=== PATIENT | female | born 1980 | race Caucasian/White ===

== ENCOUNTER 2019-11-29 11:52 | Outpatient (REF) | payer OTHER, SELFPAY ==
[2019-11-29 12:39] LABS: COVID-19 Test Negative (Negative)
== END 2019-11-29 11:53 | disposition home or self-care (01) ==
LOC: HO.LAB 11:52
PROVIDERS: Visit Provider Internal Medicine
DX: Z20.828 Contact with and (suspected) exposure to other viral communicable diseases (principal)
CPT/HCPCS: 87635

== ENCOUNTER 2019-12-03 09:02 | Outpatient (REF) | payer OTHER, SELFPAY ==
[2019-12-03 09:30] LABS: COVID-19 Test Negative (Negative)
== END 2019-12-03 09:03 | disposition home or self-care (01) ==
LOC: HO.LAB 09:02
PROVIDERS: PCP Internal Medicine; Visit Provider Internal Medicine
DX: Z20.828 Contact with and (suspected) exposure to other viral communicable diseases (principal)
CPT/HCPCS: 87635

== ENCOUNTER 2020-02-14 14:35 | Emergency (ER) | payer OTHER, SELFPAY ==
--- NOTE | 2020-02-14 16:18 | CT_ITS ---
EXAMINATION: CT ABDOMEN AND PELVIS WITH CONTRAST CLINICAL INFORMATION: Increasing lower abdominal pain with history of endometriosis. COMPARISON: None TECHNIQUE: Multidetector volumetric images were obtained from the superior aspect of the liver through the pubic symphysis following administration 85 mL of Omnipaque 350 intravenous contrast. Sagittal and coronal reformatted images were obtained on the technologist's workstation. Oral contrast: No This CT examination was performed using dose optimization techniques as appropriate, variously including the following: *Automated exposure control *Adjustment of mA and/or kV according to patient size (this includes techniques or standardized protocols for targeted exams where dose is matched to indication/reason for exam; i.e. extremities or head) *Use of iterative reconstruction technique DLP: 659 mGy-cm FINDINGS: LUNG BASES: The visualized lung bases are unremarkable. LIVER, GALLBLADDER, AND BILIARY TREE: The liver is normal in size, shape, and attenuation. No focal hepatic lesion or biliary ductal dilatation is present. The gallbladder is unremarkable with no evidence of radiopaque gallstones, gallbladder wall thickening, or obvious pericholecystic inflammatory changes. PANCREAS: Unremarkable. SPLEEN: Unremarkable. ADRENAL GLANDS: Unremarkable. KIDNEYS AND URETERS: The kidneys are normal in size, shape, and attenuation. No hydronephrosis, hydroureter, or calculi seen. No perinephric stranding. BLADDER: Unremarkable. GASTROINTESTINAL TRACT: The small and large bowel are unremarkable. The appendix is unremarkable. ABDOMINAL WALL: No significant hernia is appreciated. LYMPH NODES: Normal. VASCULAR: Unremarkable. PELVIC VISCERA: Unremarkable. OSSEOUS STRUCTURES: Unremarkable. CT/CT abdomen pelvis w con IMPRESSION: No significant abnormality.
--- NOTE | 2020-02-14 16:24 | ED_ITS ---
HPI - Abdominal Pain General Chief Complaint: Abdominal Pain Stated Complaint: low abd pain Time Seen by Provider: 02/14/20 16:18 Source: patient Mode of arrival: ambulatory Limitations: no limitations History of Present Illness HPI narrative: pt with History of endometriosis usually gets monthly slight pain before menses last menstrual cycle was 3 weeks ago started noticing pain in her lower abdomen for last 4 days which is getting worse now especially on ambulation radiating to the back patient feels his pain is different than usual pain when she get endometriosis. No fever no chills feels nauseated bowel m ovements are normal appetite is normal no urinary complaints MD elicited complaint: abdominal pain Onset (ago): day(s) (4) Pain Consistency: constant Location: RLQ and LLQ Severity: moderate Pain scale (0-10): 6 Quality: aching Radiation: LLQ and RLQ Migration to: no migration Relieving factors: movement Associated symptoms: nausea Related Data Previous Rx's Medication Instructions Recorded ibuprofen 600 mg PO Q6H PRN #20 tab 02/14/20 Allergies Allergy/AdvReac Type Severity Reaction Status Date / Time No Known Allergies [NKA] Allergy Unknown U Unverified 10/25/19 17:05 Review of Systems Review of Systems Constitutional : No Weight loss, No Fever, No Chills ENT/Mouth : No sore throat, No Rhinorrhea Eyes: No Eye Pain, No Swelling Cardiovascular : No Chest Pain, no palpitations Respiratory : No Cough, No Sputum, no shortness of breath Gastrointestinal : ++ Nausea, No Vomiting, No Diarrhea, ++ abdominal Pain, no black stools Genitourinary : No Dysuria, No Urinary Frequency Musculoskeletal : No joint pain, No Myalgias, No Joint Swelling Skin : No Skin Lesions, No rash Neuro : No Weakness, No Numbness, No Dizziness, No Headache Psych : No Anxiety/Panic, No Depression Heme/Lymph: No Bruising, No Lymphadenopathy Endocrine : No Polyuria, No Polydipsia All other systems reviewed and are negative Physical Exam Vital Signs: Vital Signs: Last Vital Signs Temp 98.4 F 02/14/20 17:24 Pulse 80 02/14/20 17:24 Resp 16 02/14/20 17:24 BP 130/69 02/14/20 17:24 Pulse Ox 100 02/14/20 17:24 Body Mass Index 32.5 Appearance: Alert. Oriented X3. in mild distress. Eyes: Pupils equal, round and reactive to light. ENT: Pharynx normal. Neck: Normal inspection. Neck supple. CVS: Normal heart rate and rhythm. Pulses normal. Respiratory: No respiratory distress. Breath sounds normal. Abdomen: Soft moderate tenderness right lower quadrant suprapubic and left lower quadrant throat without guarding or rebound tenderness, . Bowel sounds are present, no mass palpable, no CVA tenderness Skin: Skin warm and dry. Normal skin color. Normal skin turgor. Extremities: No lower extremity edema. Neuro: Oriented X 3. No motor deficit. No sensory deficit. MDM - Abdominal Pain MDM Narrative Medical decision making narrative: Lower abdominal pain CT scan negative white counts normal and ultrasound also did not show any ovarian cyst or any masses patient feeling much better after Toradol patient pain likely from endometriosis will discharge patient home on ibuprofen Differential Diagnosis Differential diagnosis: Likely abdominal pain, calculus of kidney, diverticulitis, endometriosis and ovarian cyst Lab Data Result diagrams: 02/14/20 16:32 02/14/20 16:32 Labs: Lab Results 02/14/20 02/14/20 Range/Units 16:32 16:32 WBC 8.3 (4.8-10.8) X10*3/uL RBC 3.93 L (4.20-5.50) X10*6/uL Hgb 11.8 L (12.0-16.0) g/dl Hct 36.2 L (37-47) % MCV 92.1 (80-98) fL MCH 30.0 (27.0-33.0) pg MCHC 32.6 (31.0-35.0) g/dl RDW 12.0 (11.0-16.0) % Plt Count 236 (160-400) X10*3/uL MPV 10.4 (9.4-12.3) fL Immature Gran % (Auto) 0.5 H (0.0-0.4) % Neut % (Auto) 66.0 (45-73) % Lymph % (Auto) 24.7 (20-40) % Cochran % (Auto) 6.9 (2-11) % Eos % (Auto) 1.4 (0-4) % Baso % (Auto) 0.5 (0-2) % Lymph # (Auto) 2.1 (1.2-4.9) X10*3/uL Cochran # (Auto) 0.6 (0.1-1.2) X10*3/uL Eos # (Auto) 0.1 (0.0-0.4) X10*3/uL Baso # (Auto) 0.0 (0.0-0.2) X10*3/uL Abs Immat Gran (auto) 0.04 H (0.00-0.03) X10*3/uL Absolute Neuts (auto) 5.5 (2.0-8.3) X10*3/uL Absolute Nucleated RBC 0.000 (0.0-0.012) X10*3/uL Nucleated RBC % (auto) 0.0 (0.0-0.2) /100WBC Sodium 138 (135-145) mmol/L Potassium 4.5 (3.3-5.1) mmol/l Chloride 105 (96-108) mmol/L Carbon Dioxide 27 (22-29) mmol/L Anion Gap 11 L (12-20) BUN 17 H (9-16) mg/dL Creatinine 0.75 (0.5-1.4) mg/dL Estim Creat Clear Calc TNP Estimated GFR > 60 Random Glucose 97 (60-115) mg/dL Calcium 8.3 L (8.4-10.2) mg/dL Discharge Plan Discharge Clinical Impression: Endometriosis Patient Disposition: Home, Self-Care Instructions: Endometriosis (ED) Additional Instructions: Drink plenty of fluids take pain medication as advised follow-up with your OB Prescriptions: New ibuprofen 600 mg tablet 600 mg PO Q6H PRN (Reason: pain) Qty: 20 RF: 0 Stand Alone Forms: Work/School Release Interventions: ED Discharge Assessment Last Done: 02/14/20 19:24 Discharge Date/Time: 02/14/20 19:24 [facility] Social History Social History Alcohol intake: never Smoked in Last 30 Days: No Use of substances other than those prescribed or required for medical reasons: No Advance Directives: No Advance Directives Information Provided: Yes
[2020-02-14 16:36] LABS: MANUAL DIFF FLAG NO
[2020-02-14 16:40] LABS: Basophils Percent Auto 0.5 % (0-2); Eosinophils Absolute Auto 0.1 X10*3/uL (0.0-0.4); Eosinophils Percent Auto 1.4 % (0-4); Hematocrit 36.2 % (37-47); Hemoglobin 11.8 g/dl (12.0-16.0); Imm Gran Abs Auto 0.04 X10*3/uL (0.00-0.03); Imm Gran Pct Auto 0.5 % (0.0-0.4); Lymphocytes Absolute Auto 2.1 X10*3/uL (1.2-4.9); Lymphocytes Percent Auto 24.7 % (20-40); Mean Corpuscular HGB Conc 32.6 g/dl (31.0-35.0); Mean Corpuscular Volume 92.1 fL (80-98); Mean Platelet Volume 10.4 fL (9.4-12.3); Monocytes Absolute Auto 0.6 X10*3/uL (0.1-1.2); Monocytes Percent Auto 6.9 % (2-11); Neutrophils Absolute Auto 5.5 X10*3/uL (2.0-8.3); Platelet Count 236 X10*3/uL (160-400); Red Blood Count 3.93 X10*6/uL (4.20-5.50); White Blood Count 8.3 X10*3/uL (4.8-10.8)
[2020-02-14 17:01] LABS: Anion Gap 11 (12-20); Blood Urea Nitrogen 17 mg/dL (9-16); Calcium 8.3 mg/dL (8.4-10.2); Carbon Dioxide 27 mmol/L (22-29); Chloride 105 mmol/L (96-108); Estimated Glomerular Filt Rate > 60; Glucose Random 97 mg/dL (60-115); Potassium 4.5 mmol/l (3.3-5.1); Sodium 138 mmol/L (135-145)
[2020-02-14 17:24] VITALS: BP 130/69; PULSE 80; RESP 16; TEMP 36.9; O2SAT 100; BMI 32.5
[2020-02-14] MEDS: iohexoL 350 MG/ML 100 ML INFUS..BTL IV (17:48)
--- NOTE | 2020-02-14 17:53 | US_ITS ---
EXAMINATION: US PELVIS CLINICAL INFORMATION: Pelvic pain with history of endometriosis COMPARISON: CT abdomen pelvis earlier today TECHNIQUE: Ultrasound of the pelvis is performed using both transabdominal and transvaginal transducers along with Doppler. Transvaginal imaging is performed due to inadequate visualization transabdominally. FINDINGS: Uterus: The uterus is anteverted and measures 3.4 x 2.3 x 2.8 cm. The double wall endometrial thickness is 10 mm. The uterus is smooth in contour and has normal myometrial echogenicity. No visible fibroid. Adnexa: Both ovaries are visualized. There is normal color flow to the adnexa. There is no ovarian torsion. There is no pelvic ascites or fluid collection. Right ovary measures 3.4 x 2.3 x 2.8 cm for a volume of 11.5 mL. Left ovary measures 2.0 x 3.0 x 1.3 cm for a volume of 4.1 mL. US/US pelvic complete IMPRESSION: Normal exam
[2020-02-14] MEDS: 0.9 % Sodium Chloride 1,000 ML 999 ML IVCONT (18:00)
--- NOTE | 2020-02-14 18:02 | PC.NURSE ---
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
--- NOTE | 2020-02-14 18:27 | PC.NURSE ---
patient to ultrasound
--- NOTE | 2020-02-14 18:41 | PC.NURSE ---
pt returned from ultrasound
[2020-02-14] MEDS: Ketorolac Tromethamine 30 MG/ML VIAL IVPUSH (18:58)
== END 2020-02-14 19:24 | disposition home or self-care (01) ==
PROVIDERS: Emergency Provider Internal Medicine; PCP Internal Medicine
DX: N80.9 Endometriosis, unspecified (principal)
CPT/HCPCS: 36415; 74177; 76856; 80048; 85025; 96361; 96374; 99284; J1885; Q9967

== ENCOUNTER 2024-09-14 18:23 | Outpatient (REF) | payer OTHER, SELFPAY ==
--- NOTE | ~2024-09-14 | MR_ITS ---
EXAMINATION: MR CERVICAL SPINE WITHOUT CONTRAST CLINICAL INFORMATION: Cervical radiculopathy. COMPARISON: None available. TECHNIQUE: MRI of the cervical spine was obtained using routine sequences without contrast. FINDINGS: Craniocervical junction is intact. Normal position of the cerebellar tonsils. Bone marrow inhomogeneity. Modic type II endplate changes at C5-6. Multilevel marginal osteophyte formation and disc desiccation from C3 to C7. Grade 1 retrolisthesis C3-4. Grade 1 anterolisthesis C4-5. Reverse curvature apex at C5-6. The cervical spinal cord signal is normal. C2-3: Central disc osteophyte compresses formation. No cord compression. No neuroforamina stenosis. C3-4: Left-sided disc osteophyte compresses formation resulting in ventral spinal cord deformity. No cord signal abnormality. Left-sided neuroforamina and stenosis on a degenerative basis. C4-5: Broad-based disc osteophyte compresses formation. No cord compression. No neuroforamina stenosis. C5-6: Left-sided disc osteophyte complex formation resulting in ventral spinal cord deformity. No cord signal abnormality. Left neuroforamina and stenosis on a degenerative basis. C6-7: Right subarticular and foraminal broad-based herniated disc resulting in flattening deformity of spinal cord without cord signal abnormality and right neuroforamina stenosis likely compressing the exiting nerve roots. Bilateral perineural cysts. C7-T1: No herniated disc. No neuroforamina stenosis. No prevertebral compartment hematoma, mass or fluid collection. Flow-void signal within the main vessels is normal. Codominant vertebral arteries. MR/MR cervical spine wo con IMPRESSION: Multilevel cervical spondylosis C3 C7 pronounced at C3-4 and C5-6 levels resulting in left neuroforamina stenosis and central spinal canal stenosis without cord edema and or myelopathy. Right subarticular and foraminal broad-based herniated disc at C6-7 resulting in right neuroforamina stenosis and cord deformity without cord edema and or myelopathy. Grade 1 retrolisthesis C3-4 on a degenerative basis. Cervical instability cannot be excluded. Electronically signed by: Philipp Lanier MD 09/16/2024 04:49 PM EDT
== END 2024-09-14 18:24 | disposition home or self-care (01) ==
LOC: HO.MRI 18:23
PROVIDERS: Visit Provider Physician Assistant
DX: M54.12 Radiculopathy, cervical region (principal); M54.2 Cervicalgia
CPT/HCPCS: 72141

== ENCOUNTER → 2024-09-14 18:33 | Outpatient (BNV) | payer OTHER, SELFPAY | PROVIDERS: Visit Provider Radiology Diagnostic Radiology | DX: M50.122 Cervical disc disorder at C5-C6 level with radiculopathy (principal) | CPT/HCPCS: 72141 ==

== ENCOUNTER 2025-01-21 12:49 | Outpatient (AMB) | payer OTHER, SELFPAY ==
--- OUTSIDE RECORDS SUMMARY | 2024-03-12 08:00 | XMS_ITS ---
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 S he has been in state of good health since her last exam. She has the following concerns: S he has received the [employer] Covid-19 vaccine and Moderna booster. R elationship [...] sometimes a cardio-dance. * ROS: A nnual Senior Vice President And Chief Information Officer Exam ROS: Bowel habit changes d enies. [...] Denies A nxiety. * Medical History: * Senior Vice President And Chief Information Officer History: G ravida/ Para 0 /0. S [...] no acute distress, well developed, well nourished, lead project engineer present in room. HEAD: n ormocephalic, atraumatic. [...] * Follow Up: 1 Year (Reason: Yearly Senior Vice President And Chief Information Officer Exam) * Images: Billing Information: * Visit Code: [id number] Preventive Care Est Pt. Age 40-64. 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 She has been in state of [...] x 3-4 days/week by walking videos on [employer], sometimes with weights, sometimes a cardio-dance. Examination Category Sub-Category Detail Notes Category Not es General Examination GENERAL APPEARANCE: in no ac bisi distress, well developed, well nourished, lead project engineer present in room HEAD: normocephalic, atrau matic [...]
--- NOTE | 2025-01-21 12:52 | MHC.OFFVIS ---
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 Her symptoms began five months ago when she woke up with pain in her right scapula, which felt like she had slept wrong. This pain progressed to involve her neck with radiation down her right arm to the elbow. She has pursued multiple treatments, including physical therapy with [facility] in December, massage, and dry needling, which offered temporary relief. She received a right C7 transforaminal epidural steroid injection on October 20, 2024 by , which provided temporary pain relief. The patient had a neurosurgical evaluation with Dr. De Guzman's office in late October, where surgery was not recommended due to concern for the adjacent disc level being in worse condition, which would necessitate a more extensive fusion. The Neurosurgeon instead suggested another therapeutic injection. An MRI of the cervical spine from September showed multilevel cervical spondylosis from C3-C7. Specific findings included a right subarticular and foraminal herniated disc at C6-C7 causing right neuroforaminal stenosis, left neuroforaminal stenosis at C3-4 and C5-6, and a grade 1 spondylolisthesis at C3-C4. Her medication history includes taking Aleve and cyclobenzaprine for pain. She previously tried gabapentin but discontinued it due to side effects of feeling sick. She has a history of taking Fioricet for headaches. Pain Description - Onset: Approximately 5 months ago. - Location: Primary pain in the neck. - Radiation: Pain radiates down the right arm to the elbow and inside the right scapula. - Character: The pain is described as a constant, aching sensation, with a pulling feeling when looking down. - Severity: The patient rates her current pain as 2/10, noting that it worsens by the end of the day. - Exacerbating Factors: Pain is worsened by any movement, looking down, sneezing, coughing, and heavy lifting. - Relieving Factors: Massage, heat, Flexeril and Aleve help to improve her pain. - ADL Interference: The patient is able to work, but the pain intensifies at the end of the day. Pain Management - Affect: The patient reports being so in pain. - Analgesia: Current pain level is 2/10, worsens by the end of the day with ADLs and work. - She uses Aleve as needed, which provides some relief. - She has had a prior right C7 transforaminal epidural steroid injection with moderate but temporary benefit. - She generally prefers not to take medication. - Adverse Effects: She experienced feeling sick after taking gabapentin 100 mg and discontinued it. - Activities of Daily Living: She is able to continue working, though pain worsens by the end of the day. - She is able to sleep without difficulty. - Aberrant Drug-Related Behaviors: None noted. Oswestry Neck Pain Disability Score=12 [facility] Medical History (Updated 01/21/25 @ 13:28 by ABRAHAM Krueger) Iron deficiency anemia Migraines Cervical radiculopathy Adenomyosis Anxiety Social History Alcohol intake: never Patient Tobacco Use Status: Former Tobacco user Tobacco use type: Cigarette Review of Systems Narrative - Neurological: Reports neck pain with radiation to the right arm and elbow, a pulling sensation with neck flexion, and pain at the right top of the shoulder with coughing or sneezing. - Denies headaches, dizziness, visual changes, tingling in the fingers, neck instability, or gait imbalance. - Musculoskeletal: Reports constant, aching pain in the neck that worsens with movement. Const All systems reviewed & are unremarkable except as noted in HPI and below Physical Exam General: Appears afebrile. Alert and oriented. Mood and affect appropriate. Follows and participates in conversation appropriately. Respiratory effort is unlabored. No cough. Able to transition from sit to stand unassisted. Ambulates with bilaterally normal heel strike and toe off. Neck Other: Full ROM of cervical spine, increased pain with flexion and left lateral rotation and bending. Spurling compression test equivocal. Elvey's tension test positive on the right, with radiation of pain from neck to elbow, denies numbness or tinging in hand or fingers. Lhermitte's test was negative. DTR intact, +2 and symmetrical. Patient demonstrated 5/5 motor strength of bilateral upper extremities. 2 + radial pulses. Significant tightness throughout lower and upper trapezius muscles. No paravertebral tenderness over facet joints bilaterally. Neck: Yes normal visual inspection, Yes full ROM, Yes no lymphadenopathy, Yes supple, No anterior neck swelling, Yes no JVD, No prominent supraclavicular fat pad and Yes prominent dorsocervical fat pad Back/Spine/Pelvis Cervical Spine: No collar present, No Lhermitte's sign positive, loss of normal cervical lordosis, cervical muscular tenderness, pain with cervical ROM, No Cervical spine scars present, Cervical spine tenderness (mild mid to lower cervical) and No step off deformity Thoracic/Lumbar Spine: thoracic and lumbar spine normal to inspection, No Thoracic/lumbar spine scar(s), thoraco-lumbar ROM normal, Lasegue's sign negative, straight leg raise negative bilaterally, No thoracic spinal tenderness and No lumbar spinal tenderness Results Reviewed Results Reviewed: MR CERVICAL SPINE WITHOUT CONTRAST 09/14/24 CLINICAL INFORMATION: Cervical radiculopathy. COMPARISON: None available. TECHNIQUE: MRI of the cervical spine was obtained using routine sequences without contrast. FINDINGS: Craniocervical junction is intact. Normal position of the cerebellar tonsils. Bone marrow inhomogeneity. Modic type II endplate changes at C5-6. Multilevel marginal osteophyte formation and disc desiccation from C3 to C7. Grade 1 retrolisthesis C3-4. Grade 1 anterolisthesis C4-5. Reverse curvature apex at C5-6. The cervical spinal cord signal is normal. C2-3: Central disc osteophyte compresses formation. No cord compression. No neuroforamina stenosis. C3-4: Left-sided disc osteophyte compresses formation resulting in ventral spinal cord deformity. No cord signal abnormality. Left-sided neuroforamina and stenosis on a degenerative basis. C4-5: Broad-based disc osteophyte compresses formation. No cord compression. No neuroforamina stenosis. C5-6: Left-sided disc osteophyte complex formation resulting in ventral spinal cord deformity. No cord signal abnormality. Left neuroforamina and stenosis on a degenerative basis. C6-7: Right subarticular and foraminal broad-based herniated disc resulting in flattening deformity of spinal cord without cord signal abnormality and right neuroforamina stenosis likely compressing the exiting nerve roots. Bilateral perineural cysts. C7-T1: No herniated disc. No neuroforamina stenosis. No prevertebral compartment hematoma, mass or fluid collection. Flow-void signal within the main vessels is normal. Codominant vertebral arteries. IMPRESSION: Multilevel cervical spondylosis C3 C7 pronounced at C3-4 and C5-6 levels resulting in left neuroforamina stenosis and central spinal canal stenosis without cord edema and or myelopathy. Right subarticular and foraminal broad-based herniated disc at C6-7 resulting in right neuroforamina stenosis and cord deformity without cord edema and or myelopathy. Grade 1 retrolisthesis C3-4 on a degenerative basis. Cervical instability cannot be excluded. Assessment & Plan Assessment & Plan (1) Cervical spondylosis: Code(s): M47.812 - Spondylosis without myelopathy or radiculopathy, cervical region Category: Medical (2) Degenerative disc disease, cervical: Code(s): M50.30 - Other cervical disc degeneration, unspecified cervical region Category: Medical (3) Spondylolisthesis, cervical region: Code(s): M43.12 - Spondylolisthesis, cervical region Category: Medical (4) Herniation of cervical intervertebral disc with radiculopathy: Code(s): M50.10 - Cervical disc disorder with radiculopathy, unspecified cervical region Category: Medical Plan The plan is to proceed with a Right parasagittal interlaminar C6-C7 FANNY with local, oral Ativan prn and fluoroscopy to address the patient's cervical radiculopathy. Expectations, risks and benefits were reviewed. Patient is aware she will be contacted to schedule this procedure. Radiofrequency ablation was discussed as a potential future treatment option for axial cervical spine pain, which could offer pain relief for 9-14 months, depending on the results of diagnostic cervical medial branch blocks. The possibility of ordering flexion and extension X-rays to further evaluate the C3-C4 spondylolisthesis was also considered. Follow-up is scheduled for one month after the injection. All questions and concerns have been answered and patient agreed with the treatment plan. Follow up for and sooner as needed. Patient was informed and verbally consented to the use of an ambient scribe for clinic note documentation during this visit. Orders: Orders XR cervical spine w flex/ext Today M43.12 - Spondylolisthesis, cervical region, M47.812 - Spondylosis without myelopathy or radiculopathy, cervical region, M48.02 - Spinal stenosis, cervical region, M50.30 - Other cervical disc degeneration, unspecified cervical region Coding Level of Care Code New Pt Level 4 (42191) Diagnoses Cervical spondylosis M47.812 Degenerative disc disease, cervical M50.30 Spondylolisthesis, cervical region M43.12 Herniation of cervical intervertebral disc with radiculopathy M50.10
[2025-01-21 12:59] VITALS: BP 139/82; PULSE 71; O2SAT 99; BMI 28.0
--- OUTSIDE RECORDS SUMMARY | 2025-01-21 18:28 | XMS_ITS | Clinical Summary ---
[facility] Address [address] [place] [phone] Phone Care Team Providers Care Site Safety Representative Name Role Phone Mary Bradley MD Primary Care Provider [phone] Allergies No known active allergies Medications butalbital-aceta minophen-caffein e 50-300-40 mg capsule Take 50 mg by mouth daily as needed for Other (headache). TAKE 1 CAPSULE BY MOUTH EVERY DAY NEEDED FOR HEADACHE 4 Active FLUoxetine (PROzac) 20 mg capsuleIndicatio ns:Anxiety disorder, unspecified Take 1 capsule (20 mg total) by mouth 1 (one) time each day. 90 capsule 5 Active norethindrone (KARTIK,ANGEL,HE ATHER,MICRONOR) 0.35 mg tablet take 1 tablet by mouth every day for 84 days 5 Active tirzepatide, weight loss, (Zepbound) 12.5 mg/0.5 mL injection Inject 0.5 mL (12.5 mg total) under the skin every 7 (seven) days. Active Active Problems Problem Noted Date Diagnosed Date Cervical radiculopathy 11/02/2024 Assessment & Plan (11/02/2024 10:30 AM EDT): I reviewed the imaging findings in detail with Ms. Denson and it appears that there is an acute right sided disc herniation at C6-7, 90% of which will resolve over time without surgery. She has seen some benefit from the C7 TFE 2 weeks ago and I recommended that she continue PT and give it a little more time. She could potentially have a repeat injection 6 weeks from the first for any residual symptoms. If that does not eliminate the issue or if she decides not to have a repeat injection and this again becomes a daily problem, we could reconsider a C6-7 ACDF with plating. There is an inherent risk of adjacent segment disease and C5-6 shows significant signs of wear and tear and is her worst appearing level. She is hoping to avoid surgery so we will continue medical management. Adenomyosis 04/13/2024 Iron deficiency anemia 04/13/2024 Migraines 04/13/2024 Anxiety 11/26/2014 Obesity (BMI 30-39.9) 12/21/2012 Encounters Date Type Department Care Team Description 12/18/2024 [facility] [place] [id number] Navya Gomez RN 12/18/2024 [facility] [address] [place], [place] [address] [id number] Tasia Kruger, 12/07/2024 [facility] [address] [facility] [place] [id number] Tasia Kruger, 11/16/2024 [facility] [place] [id number] Tasia Kruger, 11/08/2024 Results [facility] [address] [place], [place] [address] Saige Gr[place] [id number] Lucas Gonzalez MD 11/07/2024 9:30 AM EDT [facility] [place] [id number] Lucas Gonzalez MD Encounter for annual physical exam (Primary Dx); Anxiety; Migraine without aura and without status migrainosus, not intractable; Encounter for lipid screening for cardiovascular disease 11/02/2024 9:30 AM EDT Consult Neurosurgery [place] [address] [place] [address] Rajni Molina MD Cervical radiculopathy (Primary Dx) from Last 3 Months Immunizations Immunization Administration Dates Next Due Influenza trivalent, 0.5mL, preservative free (Fluarix; FluLaval; Fluzone) ages 6mo and older (Afluria) 3 years and older 11/06/2017,11/07/2014,10/08/2012 Influenza, Unspecified 10/12/2023 Moderna SARS-CoV-2 COVID-19, mRNA, LNP-S, preservative free 01/22/2021 Pfizer SARS-CoV-2 COVID-19, mRNA, LNP-S, preservative free 02/15/2020,01/25/2020 Tdap Tetanus diptheria acell ular pertussis (Boostrix; Adacel) 7yo and older 10/13/2023,12/21/2012 Surgical History Surgery Date Site/Laterality Comments TONSILLECTOMY PROCEDURE: HISTORICAL TONSILLECTOMY BUNIONECTOMY Left PROCEDURE: BUNION SURGERY, SIMPLE REMOVAL OTHER SURGICAL HISTORY 1995 Right PROCEDURE: REPAIR FINGER DEFORMITY; COMMENT: Elizabeth. Middle finger deformity Medical History Medical History Date Comments Migraines DX:Migraines Anxiety DX:Anxiety Iron deficiency anemia DX:Iron d eficiency anemia Adenomyosis DX:Adenomyosis Family History Medical History Relation Name Comments Other: Alive and healthy Brother Other: Alive and healthy Father Cataracts Mother thyroid disease Coronary artery disease Paternal Grandfather Other: CAD, dementia Paternal Grandmother Relation Name Status Comments Brother Father Mother Alive Paternal Grandfather Paternal Grandmother Social History Tobacco Use Types Packs/Day Years Used Date Smoking Tobacco: Former Cigarettes 0.2 0 02/07/1997 - 04/07/1997 Smokeless Tobacco: Never Tobacco Cessation:Counseling Given: Not Answered Alcohol Use Standard Drinks/Week Comments Not Asked 0 (1 standard drink = 0.6 oz pur e alcohol) Housing Instability Answer Date Recorde d Are you worried that in the next 2 months you may not have stable housing? No 04/15/2024 Food Access & Nutrition Answer Date Rec orded Do you have access to a vari ety of food including fruits and vegetables? No 04/15/2024 Access to Healthcare Answer Date Record ed Within the last 3 months, ho w many times did you visit the emergency department for your medical care? 0 04/15/2024 Health Literacy Answer Date Recorded How often do you need to hav e someone help you when you read instructions, pamphlets, or other written material from your doctor or pharmacy? Never 04/15/2024 Caregiver: How often do you need to have someone help you when you read instructions, pamphlets, or other written material from your doctor or pharmacy? Not on file 04/15/2024 Financial Risk Answer Date Recorded How hard is it for you to pa y for the very basics like food, housing, medical care, and air conditioning / heating? Not very hard 04/15/2024 Transportation Answer Date Recorded Has the lack of transportati on kept you from meetings, work, or from getting things needed for daily living? No Has the lack of transportati on kept you from medical appointments or from getting medications? No 04/15/2024 Social Isolation Answer Date Recorded How often do you feel lonely or isolated from th ose around you? Never 04/15/2024 Food Risk Answer Date Recorded Within the past 12 months we worried whether our food would run out before we got money to buy more. Never true 04/15/2024 Within the past 12 months th e food we bought just didn't last and we didn't have money to get more. Never true 04/15/2024 Dependent Care Answer Date Recorded Do you need help finding or paying for care for your loved ones. For example, attendant children's institution or elderly care for an older adult? No 04/15/2024 Education Answer Date Recorded Do you think completing more education or training, like finishing a GED, going to college, or learning a trade, would be helpful for you? No 04/15/2024 Employment and Income Answer Date Recor ded During the last four weeks, have you been actively looking for work? No 04/15/2024 Living Situation Answer Date Recorded What is your living situation? Unrecognized valu e 04/15/2024 Comments No Sex and Gender Information Value Date Recorded Sex Assigned at Female 08/03/2024 7:20 PM EDT Legal Sex Female 11:10 PM EST Gender Identity Female 08/03/2024 7:20 PM EDT Sexual Orientation Straight 08/03/2024 7: 20 PM EDT Last Filed Vital Signs Vital Sign Reading Time Taken Comments Blood Pressure 80/58 11/07/2024 9:12 AM EDT Pulse 69 11/07/2024 9:12 AM EDT Temperature - - Respiratory Rate 16 08/20/2024 1:07 PM EDT Oxygen Saturation 97% 08/14/2024 9:18 AM EDT Inhaled Oxygen Concentration - - Weight 74.7 kg (164 lb 11.2 oz) 11/07/2024 9:12 AM EDT Height 162.6 cm (5' 4 ) 11/07/2024 9:12 AM EDT Body Mass Index 28.27 11/07/2024 9:12 AM EDT Plan of Treatment Health Maintenance Due Date Last Done Comments Breast Cancer Screening 1980 Hepatitis B Vaccines (1 of 3 - 19+ 3-dose series) 06/29/1999 HPV Vaccines (1 - 3-dose SCDM series) 06/29/2007 HIV Screening 01/10/2022 Hepatitis C Screening 01/10/2022 Social Influencers of Health Screening 04/15/2025 04/15/2024 Cervical Cancer Screening: Pap Smear 08/23/2027 08/22/2024, 05/20/2021 Cholesterol Screening (Lipid Panel) 11/07/2029 11/07/2024, 10/13/2023, 10/13/2023 DTaP,Tdap,and Td Vaccines (3 - Td or Tdap) 10/12/2033 10/13/2023, 12/21/2012 RSV Immunization Adult Patients (1 - 1-dose 75+ series) 06/29/2055 COVID-19 Vaccine Discontinued 01/22/2021, 09/2020, 01/25/2020 Influenza Vaccine Discontinued 10/12/2023, , 11/07/2014, Additional history exists Depression Screening Completed 04/15/2024 HIB Vaccines Aged Out No longer eligi ble based on patient's age to complete this topic Hepatitis A Vaccines Aged Out No long er eligible based on patient's age to complete this topic IPV Vaccines Aged Out No longer eligi ble based on patient's age to complete this topic MMR Vaccines Aged Out No longer eligi ble based on patient's age to complete this topic Meningococcal ACWY Vaccine Aged Out N o longer eligible based on patient's age to complete this topic Meningococcal B Vaccine Aged Out No l onger eligible based on patient's age to complete this topic Pneumococcal Vaccine: Pediatrics (0 to 5 Years) and At-Risk Patients (6 to 49 Years) Aged Out No longer eligible based on patient's age to complete this topic RSV Immunization Patients Under 20 months Aged Out No longer eligible based on patient's age to complete this topic Varicella Vaccines Aged Out No longer eligible based on patient's age to complete this topic Procedures Procedure Name Priority Date/Time Associated Diagnosis Comments LIPID PANEL WITH REFLEX TO DIRECT LDL Routine 11/07/2024 9:49 AM EDT Encounter for lipid screening for cardiovascular disease COMPREHENSIVE METABOLIC PANEL Routine 11/07/2024 9:49 AM EDT Encounter for lipid screening for cardiovascular disease HM PAP SMEAR Routine 05/20/2021 from Last 3 Months or Most Recently Relevant to Health Maintenance Results * Lipid panel with reflex to direct LDL (11/07/2024 9:49 AM EDT) Cholesterol 148 0 - 200 mg/dL LAB CHEMISTRY METHOD 11/07/2024 4:36 PM EDT [facility] Triglycerides 43 0 - 150 mg/dL LAB CHEMISTRY METHOD 11/07/2024 4:36 PM EDT [facility] HDL 67 >=40 mg/dL LAB CHEMISTRY METHOD 11/07/2024 4:36 PM EDT [facility] LDL Calculated 72 0 - 100 mg/dL LAB CHEMISTRY METHOD 11/07/2024 4:36 PM EDT [facility] Comment:Estimated LDL Calcul ated using equation: Total cholesterol - HDL cholesterol - (Triglycerides/5) VLDL Cholesterol Tramaine 8.6 mg/dL LAB CHEMISTRY METHOD 11/07/2024 4:36 PM EDT [facility] Non HDL Chol. (LDL+VLDL) 81 <145 mg/dL LAB CHEMISTRY METHOD 11/07/2024 4:36 PM [facility] Chol/HDL Ratio 2.2 0.0 - 4.4 LAB CHEMISTRY METHOD 11/07/2024 4:36 PM [facility] Blood Venous blood specimen / Unknown Venipuncture / Unknown 11/07/2024 9:49 AM EDT 11/07/2024 9:49 AM EDT us Lucas Gonzalez MD LAB BLOOD ORDERABLES Final Resu lt [facility] [address] [place] [address], [place] [phone] * (ABNORMAL) Comprehensive metabolic panel (11/07/2024 9:49 AM EDT) Sodium 140 133 - 145 mmol/L LAB CHEMISTRY METHOD 11/07/2024 4:36 PM [facility] Potassium 4.5 3.5 - 5.5 mmol/L LAB CHEMISTRY METHOD 11/07/2024 4:36 PM [facility] Chloride 109 96 - 110 mmol/L LAB CHEMISTRY METHOD 11/07/2024 4:36 PM [facility] CO2 28 21 - 32 mmol/L LAB CHEMISTRY METHOD 11/07/2024 4:36 PM [facility] Anion Gap 3 3 - 11 LAB CHEMISTRY METHOD 11/07/2024 4:36 PM [facility] Glucose 74 70 - 100 mg/dL LAB CHEMISTRY METHOD 11/07/2024 4:36 PM [facility] BUN 10 5 - 25 mg/dL LAB CHEMISTRY METHOD 11/07/2024 4:36 PM [facility] Creatinine 0.61 0.50 - 1.10 mg/dL LAB CHEMISTRY METHOD 11/07/2024 4:36 PM [facility] eGFR 113 >=60 mL/min/1. 73m2 LAB CHEMISTRY METHOD 11/07/2024 4:36 PM T [facility] Comment:Calculation based on the Chronic Kidney Disease Epidemiology Collaboration (CKD-EPI) equation refit without adjustment for race. BUN/Creatinine Ratio 16.4 LAB CHEMISTRY METHOD 11/07/2024 4:36 PM [facility] Calcium 8.7 8.5 - 10.5 mg/dL LAB CHEMISTRY METHOD 11/07/2024 4:36 PM [facility] AST (SGOT) 17 10 - 42 unit/L LAB CHEMISTRY METHOD 11/07/2024 4:36 PM [facility] ALT (SGPT) 23 10 - 60 unit/L LAB CHEMISTRY METHOD 11/07/2024 4:36 PM [facility] Alkaline Phosphatase 28(L) 42 - 121 unit/L LAB CHEMISTRY METHOD 11/07/2024 4:36 PM [facility] Total Protein 6.2 6.0 - 8.0 g/dL LAB CHEMISTRY METHOD 11/07/2024 4:36 PM [facility] Albumin 3.5 3.2 - 5.0 g/dL LAB CHEMISTRY METHOD 11/07/2024 4:36 PM [facility] Total Bilirubin 0.3 0.0 - 1.4 mg/dL LAB CHEMISTRY METHOD 11/07/2024 4:36 PM [facility] Blood Venous blood specimen / Unknown Venipuncture / Unknown 11/07/2024 9:49 AM EDT 11/07/2024 9:49 AM EDT us Lucas Gonzalez MD LAB BLOOD ORDERABLES Final Resu lt [facility] [address] [place] [address], [place] [phone] * Hm Pap Smear (05/20/2021) HM Pap smear no interpreta tion,abstr acted us Historical Provider HEALTH MAINTENANCE Final Result from Last 3 Months or Most Recently Relevant to Health Maintenance Insurance [employer] Care Teams Site Safety Representative Relationship Specialty Start Date End Date Mary Bradley MD [address] [place] [phone] PCP - General Internal Medicine 12/18/24
--- OUTSIDE RECORDS SUMMARY | 2025-01-21 18:29 | XMS_ITS | Patient Health Record ---
Author Organization [facility] Address [address] [place] [address] Care Team Providers Care Swim Coach Name Role Phone JONO CHAPMAN Unavailable [phone] Allergies No Known Allergies Results Component Value Reference Range Notes [id number] IGP No Culture 30 Plus Reviewed date:04/24/2024 01:03:33 PM Interpretation: Performing Lab:[facility], [address], [address], [place], Phone - [phone], Director - [facility] Notes/Report: Clinical Information:VAG/CERV [id number] LMP / Prev Treat...YMD=[id number] Dates / Results....10/31/18 No. of containers..01 ThinPrep Vial DIAGNOSIS: NEGATIVE FOR IN TRAEPITHELIAL LESION OR MALIGNANCY. Specimen adequacy: Satisfactory for evaluation. Endocervical and/or squamous metaplastic cells (endocervical component) are present. Clinician provided ICD10: Z0 1.419 Performed by: Fabien nath, Salesperson [employer] ([facility]) . . Note: The Pap smear is a screening test designed to aid in the detection of premalignant and malignant conditions of the uterine cervix. It is not a diagnostic procedure and should not be used as the sole means of detecting cervical cancer. Both false-positive and false-negative reports do occur. . Test Methodology: This liquid based ThinPrep(R) pap test was screened with the use of an image guided system. HPV Aptima Negative Negative This nucleic acid amplification test detects fourteen high-risk HPV types (16,18,31,33,35,39,45,51,52,56,58 ,59,66,68) without differentiation. HPV Genotype Reflex Criteria not met, HPV Genotype not performed. PDF Report Reviewed date:04/24/2024 01:05:13 PM Interpretation: Performing Lab:[facility], [address], [address], [place], Phone - [phone], Director - [place] Notes/Report: Clinical Information:VAG/CERV [id number] LMP / Prev Treat...[id number]=[id number] Dates / Results....10/31/18 No. of containers..01 ThinPrep Vial Reason For Referral No Information Medications Medication SIG (Take, Route, Fr equency, Duration) Notes Start Date End Date Status Mefenamic Acid 250 MG 1 capsule with yoni d or milk Orally Initially 2 capsules, then 1 cap every 6 hours for first 3d of menses; Duration: 3 days [facility] 07/10/2013 Active Fioricet 50-300-40MG ORAL; Duration: -3 [facility] 12/25/2013 Active Multi For Her - as directed Orally Active Norethindrone 0.35 MG 1 tablet Orally On ce a day; Duration: 84 days 04/19/2024 Active FLUoxetine HCl 20 MG 1 capsule Orally On ce a day; Duration: 30 day(s) Active Zepbound 12.5 MG/0.5ML 0.5 mL Subcutaneous Active Social History Tobacco Use: Social History Observation Description Date Details (start date - stop date) Never Smoker NA - NA Tobacco Use/Smoking Question Answer Notes Are you a nonsmoker Alcohol Screen (Audit-C) Question Answer Notes Did you have a drink contain ing alcohol in the past year? Yes How often did you have a dri nk containing alcohol in the past year? Monthly or less (1 point) How many drinks did you have on a typical day when you were drinking in the past year? 1 or 2 drinks (0 point) How often did you have 6 or more drinks on one occasion in the past year? Never (0 point) Points 1 Interpretation Negative Tobacco use other than smoking: Question Answer Notes Are you an other tobacco user? 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 Heterosexual CONTRACEPTION: none , trying to conceive. Severe migraines from OCP TOBACCO EXPOSURE: No smokers in home. 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 Heterosexual CONTRACEPTION: none , trying to conceive. 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 Heterosexual CONTRACEPTION: none , trying to conceive. Severe migraines from OCP TOBACCO EXPOSURE: No smokers in home. 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 Heterosexual CONTRACEPTION: none , trying to conceive. Severe migraines from OCP TOBACCO EXPOSURE: No smokers in home. ALCOHOL: occasional alcohol TEXT MESSAGING WHILE DRIVING: no ILLICIT DRUGS: no SEATBEALT: yes MARITAL STATUS: LIVES WITH: spouse OCCUPATION: employed full-time [employer] at [employer] xNUTRITION: good diet, on WW EXERCISE: occasional aerobic activity, occasional weight lifting / resistance exercise SEXUAL ACTIVITY: monogamous relationship. Heterosexual CONTRACEPTION: none , trying to conceive. Severe migraines from OCP TOBACCO EXPOSURE: No smokers in home. 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 Heterosexual CONTRACEPTION: none , trying to conceive. Severe migraines from OCP TOBACCO EXPOSURE: No smokers in home. 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 Heterosexual CONTRACEPTION: none , trying to conceive. Severe migraines from OCP TOBACCO EXPOSURE: No smokers in home. 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 Heterosexual CONTRACEPTION: none , trying to conceive. Severe migraines from OCP TOBACCO EXPOSURE: No smokers in home. 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 Heterosexual CONTRACEPTION: none , trying to conceive. Severe migraines from OCP TOBACCO EXPOSURE: No smokers in home. 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 Heterosexual CONTRACEPTION: none , trying to conceive. Severe migraines from OCP TOBACCO EXPOSURE: No smokers in home. 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 Heterosexual CONTRACEPTION: none , trying to conceive. Severe migraines from OCP TOBACCO EXPOSURE: No smokers in home. 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 Heterosexual CONTRACEPTION: none , trying to conceive. Severe migraines from OCP TOBACCO EXPOSURE: No smokers in home. 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 Heterosexual CONTRACEPTION: none. Severe migraines from OCP TOBACCO EXPOSURE: No smokers in home. 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 Heterosexual CONTRACEPTION: none. Severe migraines from OCP TOBACCO EXPOSURE: No smokers in home. 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 Heterosexual CONTRACEPTION: none. Severe migraines from OCP TOBACCO EXPOSURE: No smokers in home. ALCOHOL: occasional alcohol TEXT MESSAGING WHILE DRIVING: no ILLICIT DRUGS: no SEATBEALT: yes Problems Problem Type SNOMED Code ICD Code Onset Dates Problem Status W/U Status Risk Notes Problem Dysmenorrhea (135133414) Dysmenorrhea, unspecified (N94.6) Active confirmed Problem Migraine without aura, not refractory (disorder) (469464254) Migraine, unspecified, not intractable, without status migrainosus (G43.909) Active confirmed Problem Atopic dermatitis (93583375) Atopic dermatitis, unspecified (L20.9) Active confirmed Problem Subacute and chronic vaginitis (N76.1) Active confirmed Problem Endometriosis of uterus (34259789) Endometriosis of uterus (N80.0) Active confirmed Problem Female infertility (9188307) Female infertility, unspecified (N97.9) Active confirmed Problem COVID-19 (492873382) COVID-19 (U07.1) Active confirmed Problem Body mass index 30.00 to 34.99 (943350073133439) Body mass index [BMI] 34.0-34.9, adult (Z68.34) Active confirmed Problem Dysmenorrhea (633918761) Dysmenorrhea (625.3) Active confirmed Diag Vital Signs Temperature 98.0 degrees Fahrenheit 04/19/2024 Blood pressure diastolic 68 mm Hg 04/19/2024 Height 63.5 in 04/19/2024 Blood pressure systolic 116 mm Hg 04/19/2024 Weight 172 lbs 04/19/2024 BMI 29.99 kg/m2 04/19/2024 Encounters Encounter Location Date Provider Diagnosis [facility] [employer] [address] [place] [id number] 04/19/2024 JONO CHAPMAN Encounter for gynecological examination (general) (routine) without abnormal findings Z01.419 ; Encounter for screening mammogram for malignant neoplasm of breast Z12.31 and Dysmenorrhea, unspecified N94.6 [facility] [employer] [address] [address] 08/05/2024 JONO CHAPMAN [facility] [facility] [employer] [address] [address] 08/07/2024 JONO CHAPMAN Assessments Encounter Date Diagnosis (ICD Code) Assessment Notes Treatment Notes Treatment Clinical Notes Section Notes 04/19/2024 Encounter for gynecological examination (general) (routine) without abnormal findings (ICD-10 - Z01.419) Discussed cervical cancer screening with either cytology alone every 3 years or high risk HPV co-testing every 5 years as per ASCCP guidelines. Advised continued annual pelvic exams. Patient encouraged to increase her level of exercise. SBE technique encouraged/taught. Patient reminded when annual mammogram is due. 04/19/2024 Encounter for screening mammogram for malignant neoplasm of breast (ICD-10 - Z12.31) 04/19/2024 Dysmenorrhea, unspecified (ICD-10 - N94.6) Discussed that Zepbound can decrease the effectiveness of hormonal contraceptives - she has never prevented , and never conceived. Was never interested in testing to see why. She accepts this lower efficacy. Plan Of Treatment Pending Test Test Name Order Date Urinalysis 10/06/2016 Ultrasound : Transvaginal 03/15/2014 ONE SWAB 11/12/2016 ANTI MULLERIAN HORMO 10/31/2018 ESTRADIOL 10/31/2018 FSH 10/31/2018 LH 10/31/2018 PROLACTIN 10/31/2018 THIN PREP,HPV,ALDAIR IF HPV+/CYT-,CT/GC(>2 9YR)(DIAG) 10/31/2018 TSH 10/31/2018 MM Digital Screening Mammogram 3D 2020 MM Digital Screening Mammogram 3D 2022 MM Digital Screening Mammogram 3D 2024 Insurance Providers Payer Name Payer Address Payer Phone Subscriber Number Group Number Insured Name Patient Relationship to Insured Coverage Start Date Coverage End Date [employer] [address] [place] [address] [id number] JEMIMA STROUD Self - patient is the insured Medical (General) History Medical History History ICD Code Dysmenorrhea, unspecified N94.6 Migraine, unspecified, not intractable, without status migrainosus Endometriosis of uterus N80.0 Atopic dermatitis, unspecified L20.9 Excessive and frequent menstruation with regular cycle N92.0 COVID-19 U07.1 Surgical History Surgery Date(Month/Year) Bunionectomy hand surgery T+A wisdom teeth extraction Lasik - both eyes 2021 Hospitalization History Reason Date(Month/Year)
== END 2025-01-21 13:21 | disposition home or self-care (01) ==
LOC: HO.PMC 12:49
PROVIDERS: PCP Internal Medicine; Visit Provider Nurse Practitioner Family
DX: M47.812 Spondylosis without myelopathy or radiculopathy, cervical region (principal); M50.30 Other cervical disc degeneration, unspecified cervical region; M43.12 Spondylolisthesis, cervical region; M50.10 Cervical disc disorder with radiculopathy, unspecified cervical region
CPT/HCPCS: 99204

== ENCOUNTER 2025-01-22 12:35 | Outpatient (REF) | payer OTHER, SELFPAY ==
--- OUTSIDE RECORDS SUMMARY | 2024-03-12 08:00 | XMS_ITS ---
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 MANAGER Physical Encounters Encounter Location Date Provider Diagnosis [facility] [address] [place] [id number] 03/12/2024 JONO CHAPMAN Encounter for gynecological examination (general) (routine) without abnormal findings Z01.419 ; Encounter for screening mammogram for malignant neoplasm of breast Z12.31 and Encounter for screening for infections with a predominantly sexual mode of transmission Z11.3 Assessments Encounter Date Diagnosis (ICD Code) Assessment Notes Treatment Notes Treatment Clinical Notes Section Notes 03/12/2024 Encounter for gynecological examination (general) (routine) without abnormal findings (ICD-10 - Z01.419) Discussed cervical cancer screening with either cytology alone every 3 years or high risk HPV co-testing every 5 years as per ASCCP guidelines. Advised continued annual pelvic exams. Patient encouraged to increase her level of exercise. SBE technique encouraged/tau ght. Patient reminded when annual mammogram is due. 03/12/2024 Encounter for screening mammogram for malignant neoplasm of breast (ICD-10 - Z12.31) 03/12/2024 Encounter for screening for infections with a predominantly sexual mode of transmission (ICD-10 - Z11.3) Plan Of Treatment Treatment Notes Assessment Notes Encounter for gynecological examination (general) (routine) without abnormal findings Discussed cervical cancer screening with either cytology alone every 3 years or high risk HPV co-testing every 5 years as per ASCCP guidelines. Advised continued annual pelvic exams. Patient encouraged to increase her level of exercise. SBE technique encouraged/taught. Patient reminded when annual mammogram is due. Pending Test Test Name Order Date MM Digital Screening Mammogram 3D 2024 Next Appt Details Follow Up: 1 Year, Reason: Y early Platform Builder Exam Progress Notes * DARLENE STROUDDOB:1980 (44 yo F)Acc No.[id number]:03/12/2024 PROGRESS NOTES Patient: DARLENE GIBSON Provider: Edda CHAPMAN MD :1980 A ge:43 Y S ex:Female Date:03/12/2024 Address:[address] [place] [address] Subjective: * Chief Complaints: * 1 . 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 S he has been in state of good health since her last exam. She has the following concerns: S he has received the [employer]ire[employer] Covid-19 vaccine and Moderna booster. R elationship status: * for 14 years. She is sexually active. Sexual partner(s): male. She does not wish to have STI testing. M enses: *monthly, lasting 5-7 days, heavy flow, saturating a regular tampon in a couple of hours. She reports that her cramping is getting worse. She has had a rough time on OCPs in the past - she would get worse migraines. She is using a tens unit for her cramping with some relief. The cramping starts just before her bleeding, sometimes it will last a long time. Exercise and movement helps. C ontraception: *none - has never conceived and would like to not be . S he does *not report vaginal dryness. She does *not have hot flashes/night sweats. T he patient has not had an abnormal pap smear within the last 5 years. She reports an abnormal about 17 yrs ago, repeated once or twice (no colposcopy) and has been normal ever since. Her most recent pap smear was 10/31/18 - NIL, neg HR HPV. Due for cotesting. S he has not been diagnosed with breast cancer. She does have a family history of breast cancer - maternal aunt in her mid to late 40's. Her last mammogram was 02/24/24. T he patient does* exercise. She exercises x 3-4 days/week by walking videos on youtube, sometimes with weights, sometimes a cardio-dance. * ROS: A nnual Platform Builder Exam ROS: Bowel habit changes d enies. B ladder symptoms d enies. V aginal discharge, unusual d enies. V aginal itch or odor d enies. a bnormal bleeding d enies. w eight or appetite changes d enies. C hest pains, SOB d enies. d epression d enies. B reast: Denies B reast lump. D enies N ipple discharge.? H ematology: Denies S wollen glands. S kin: Patient denies c hanging moles. P sychiatric: Denies A nxiety. * Medical History: * Platform Builder History: G ravida/ Para 0 /0. S exual activity c urrently sexually active. L ast Pap Smear: NIL, NEG HRHPV. M ammogram: , 08/01/2021 , < 50% density. A bnormal Pap Smear: A SC/+HR HPV 2007-. NIL since. L MP and menses , 06/06/2020. H istory of STD's: n one. B irth Control: n one. G ardasil: h as not had vaccine. * OB History: T otal pregnancies G 0 P0000. Objective: * Vitals: * Examination: G eneral Examination: GENERAL APPEARANCE: i n no acute distress, well developed, well nourished, bracelet form coverer present in room. HEAD: n ormocephalic, atraumatic. NECK/THYROID: n pooja supple, full range of motion, thyroid normal. LYMPH NODES: n o axillary or supraclavicular adenopathy.? SKIN: normal, good turgor, no rashes, no suspicious lesions. BREASTS: n ormal, no dimpling, no discharge, no drainage, no masses palpable bilaterally, nontender. ABDOMEN: soft, non-tender, non distended without masses or hepatosplenomegay. RECTAL: normal tone, no masses palpable. BACK: no costovertebral angle tenderness. FEMALE GENITOURINARY: V ulva without lesions or masses, vagina pink without abnormal discharge, lesions or masses, cervix appears normal and is not tender to palpation, uterus is normal size, mobile, nontender and anteverted, ovaries are not palpable. NEUROLOGIC: alert and oriented, gait normal. PSYCH: alert, oriented, cognitive function intact, cooperative with exam, good eye contact, mood/affect full range, speech clear. Assessment: * Assessment: 1. E ncounter for gynecological examination (general) (routine) without abnormal findings - Z01.419 (Primary) 2 . E ncounter for screening mammogram for malignant neoplasm of breast - Z12.31 3 . E ncounter for screening for infections with a predominantly sexual mode of transmission - Z11.3 Plan: * Treatment: 2. E ncounter for screening mammogram for malignant neoplasm of breast I maging: MM Digital Screening Mammogram 3D * Follow Up: 1 Year (Reason: Yearly Platform Builder Exam) * Images: Billing Information: * Visit Code: [id number] Preventive Care Est Pt. Age 40-64. 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 She has been in state of good health since her last exam. She has the following concerns: She has received the Pfizer Covid-19 vaccine and Moderna booster. Relationship status: * for 14 years. She is sexually active. Sexual partner(s): male. She does not wish to have STI testing. Menses: *monthly, lasting 5-7 days, heavy flow, saturating a regular tampon in a couple of hours. She reports that her cramping is getting worse. She has had a rough time on OCPs in the past - she would get worse migraines. She is using a tens unit for her cramping with some relief. The cramping starts just before her bleeding, sometimes it will last a long time. Exercise and movement helps. Contraception: *none - has never conceived and would like to not be . She does *not report vaginal dryness. She does *not have hot flashes/night sweats. The patient has not had an abnormal pap smear within the last 5 years. She reports an abnormal about 17 yrs ago, repeated once or twice (no colposcopy) and has been normal ever since. Her most recent pap smear was 10/31/18 - NIL, neg HR HPV. Due for cotesting. She has not been diagnosed with breast cancer. She does have a family history of breast cancer - maternal aunt in her mid to late 40's. Her last mammogram was 02/24/24. The patient does* exercise. She exercises x 3-4 days/week by walking videos on [employer], sometimes with weights, sometimes a cardio-dance. Examination Category Sub-Category Detail Notes Category Not es General Examination GENERAL APPEARANCE: in no ac bisi distress, well developed, well nourished, bracelet form coverer present in room HEAD: normocephalic, atrau matic NECK/THYROID: neck supple, full ra nge of motion, thyroid normal ABDOMEN: soft, non-tender, no n distended without masses or hepatosplenomegay NEUROLOGIC: alert and oriented, gait normal SKIN: normal, good turgor, no rashes, no suspicious lesions BACK: no costovertebral an gle tenderness BREASTS: normal, no dimpling, no discharge, no drainage, no masses palpable bilaterally, nontender LYMPH NODES: no axillary or supra clavicular adenopathy RECTAL: normal tone, no mass es palpable PSYCH: alert, oriented, cog nitive function intact, cooperative with exam, good eye contact, mood/affect full range, speech clear FEMALE GENITOURINARY: Vulva without lesi ons or masses, vagina pink without abnormal discharge, lesions or masses, cervix appears normal and is not tender to palpation, uterus is normal size, mobile, nontender and anteverted, ovaries are not palpable
--- NOTE | ~2025-01-22 | XR_ITS ---
EXAMINATION: XR CERVICAL SPINE CLINICAL INFORMATION: M47.812 - Spondylosis without myelopathy or radiculopathy, cervical region COMPARISON: No recent prior. Correlation made with MR cervical 09/14/2024. TECHNIQUE: 5 views of the cervical spine, inclusive of flexion and extension views, were obtained. FINDINGS: Mild straightening of the normal lordosis. No significant scoliosis. No fracture, compression deformity, or suspicious bone lesion is evident. Moderate disc degeneration is present at C3-4, as well as C5-6. Lateral view demonstrates a 2 mm degenerative appearing retrolisthesis of C3 on C4. On extension this increases to 3 mm. On flexion this decreases to 1 mm. There may be mild instability at C3-4. No additional regions of subluxation to suggest instability. C1-2 articulation and craniocervical junction are intact and aligned. No prevertebral soft tissue abnormalities. Lung apices are clear. XR/XR cervical spine w flex/ext IMPRESSION: 1. No acute bony abnormality of the cervical spine. 2. Moderate disc degeneration present at C3-4 and C5-C6. 3. Flexion and extension views demonstrate possible mild instability at C3-4 as detailed above. Electronically signed by: Zach Jackman MD 01/22/2025 12:52 PM [facility]
--- OUTSIDE RECORDS SUMMARY | 2025-01-22 16:23 | XMS_ITS | Patient Health Record ---
[facility] Organization [facility] Address [address] [place] [address] Care Team Providers Care Global Transportation Manager Name Role Phone JONO CHAPMAN Unavailable [phone] Allergies No Known Allergies Results Component Value Reference Range Notes [id number] IGP No Culture 30 Plus Reviewed date:04/24/2024 01:03:33 PM Interpretation: Performing Lab:[facility], [address], [address], [place], Phone - [phone], Director - [facility] Notes/Report: Clinical Information:VAG/CERV [id number] LMP / Prev Treat...CWR=[id number] Dates / Results....10/31/18 No. of containers..01 ThinPrep Vial DIAGNOSIS: NEGATIVE FOR IN TRAEPITHELIAL LESION OR MALIGNANCY. Specimen adequacy: Satisfactory for evaluation. Endocervical and/or squamous metaplastic cells (endocervical component) are present. Clinician provided ICD10: Z0 1.419 Performed by: Fabien nath, Art Gilder ([facility]) . . Note: The Pap smear is [...] Lab:[facility], [address], [address], [place], Phone - [phone], Director - [place] Notes/Report: Clinical Information:VAG/CERV [id number] LMP / Prev Treat...CFI=[id number] Dates / Results....10/31/18 No. 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 Heterosexual CONTRACEPTION: none , trying to conceive. 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 Heterosexual CONTRACEPTION: none , trying to conceive. Severe migraines from OCP TOBACCO EXPOSURE: No smokers in home. 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 Heterosexual CONTRACEPTION: none , trying to conceive. Severe migraines from OCP TOBACCO EXPOSURE: No smokers in home. 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 Heterosexual CONTRACEPTION: none , trying to conceive. Severe migraines from OCP TOBACCO EXPOSURE: No smokers in home. 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 Heterosexual CONTRACEPTION: none. Severe migraines from OCP TOBACCO EXPOSURE: No smokers in home. 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 Heterosexual CONTRACEPTION: none. Severe migraines from OCP TOBACCO EXPOSURE: No smokers in home. 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 Heterosexual CONTRACEPTION: none. Severe migraines from OCP TOBACCO EXPOSURE: No smokers in home. 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 Heterosexual CONTRACEPTION: none , trying to conceive. Severe migraines from OCP TOBACCO EXPOSURE: No smokers in home. 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 Heterosexual CONTRACEPTION: none , trying to conceive. Severe migraines from OCP TOBACCO EXPOSURE: No smokers in home. 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 Heterosexual CONTRACEPTION: none , trying to conceive. Severe migraines from OCP TOBACCO EXPOSURE: No smokers in home. 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 Heterosexual CONTRACEPTION: none , trying to conceive. Severe migraines from OCP TOBACCO EXPOSURE: No smokers in home. 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 Heterosexual CONTRACEPTION: none , trying to conceive. Severe migraines from OCP TOBACCO EXPOSURE: No smokers in home. 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 Heterosexual CONTRACEPTION: none , trying to conceive. Severe migraines from OCP TOBACCO EXPOSURE: No smokers in home. 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 Heterosexual CONTRACEPTION: none , trying to conceive. Severe migraines from OCP TOBACCO EXPOSURE: No smokers in home. 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, on WW EXERCISE: [...] Status W/U Status Risk Notes Problem Dysmenorrhea (074674686) Dysmenorrhea, unspecified (N94.6) Active confirmed Problem Migraine without aura, not refractory (disorder) (802658554) Migraine, unspecified, not intractable, without status migrainosus (G43.909) Active confirmed Problem Atopic dermatitis (28826440) Atopic dermatitis, unspecified (L20.9) Active confirmed Problem Subacute and chronic vaginitis (N76.1) Active confirmed Problem Endometriosis of uterus (52297624) Endometriosis of uterus (N80.0) Active confirmed Problem Female infertility (8399105) Female infertility, unspecified (N97.9) Active confirmed Problem COVID-19 (165468489) COVID-19 (U07.1) Active confirmed Problem Body mass index 30.00 to 34.99 (485452714530024) Body mass index [BMI] 34.0-34.9, adult (Z68.34) Active confirmed Problem Dysmenorrhea (045028647) Dysmenorrhea (625.3) Active confirmed Diag Vital Signs Temperature 98.0 degrees Fahrenheit 04/19/2024 Blood pressure diastolic 68 mm Hg 04/19/2024 Height 63.5 in 04/19/2024 Blood pressure systolic 116 mm Hg 04/19/2024 Weight 172 lbs 04/19/2024 BMI 29.99 kg/m2 04/19/2024 Encounters Encounter Location Date Provider Diagnosis [facility] [employer] [address] [place] [phone] 04/19/2024 JONO CHAPMAN Encounter for gynecological examination (general) (routine) without abnormal findings Z01.419 ; Encounter for screening mammogram for malignant neoplasm of breast Z12.31 and Dysmenorrhea, unspecified N94.6 [facility] [employer] [address] [address] 08/05/2024 JONO CHAPMAN [facility] [employer] [address] [address] 08/07/2024 JONO CHAPMAN Assessments Encounter Date Diagnosis [...] Date Coverage End Date [employer] [address] [place] [id number] JEMIMA STROUD Self - patient is the [...]
--- OUTSIDE RECORDS SUMMARY | 2025-01-22 16:23 | XMS_ITS | Encounter Summary ---
Author Organization [facility] Address [address] [place] [address] Care Team Providers Care Environmental Marketing Representative Name Role Phone Mary Bradley MD Primary Care Provider [phone] Encounter Details Date Type Department Care Team (Late st Contact Info) Description 01/22/2025 Results Follow-Up Internal Medicine - [facility] [address] [place] [address] Mary Bradley MD [address], [place] Social History Tobacco Use Types Packs/Day Years Used Date Smoking Tobacco: Former Cigarettes 0.2 0 02/07/1997 - 04/07/1997 Smokeless Tobacco: Never Alcohol Use Standard Drinks/Week Comments Not Asked [...] Record ed Within the last 3 months, nuzhat rodriguez many times did you visit the emergency [...] care for your loved ones. For example, child care assistant or elderly care for an older adult? [...] Orientation Straight 08/03/2024 7: 20 PM EDT documented as of this encounter Plan of Treatment Not on file documented as of this encounter Visit Diagnoses Not on filedocumented in this encounter Additional Health Concerns Assessment Noted Time PHQ-9 Depression Total Score: 0 04/16/19 25 4:11 PM EDT documented as of this encounter Care Teams Environmental Marketing Representative Relationship Specialty Start Date End Date Mary Bradley MD [address] [place] [address] PCP - General Internal Medicine 12/18/24 documented as of this encounter
--- OUTSIDE RECORDS SUMMARY | 2025-01-22 16:23 | XMS_ITS | Clinical Summary ---
Author Organization [facility] Address [address] [place] [phone] Phone Care Team Providers Care Professor Of Special Education Name Role Phone Mary Bradley MD Primary Care Provider [phone] Allergies No known active allergies Medications butalbital-aceta [...] Encounters Date Type Department Care Team Description 01/22/2025 Results Follow-Up Internal Medicine - [facility] [address] [place] [address] Mary Bradley MD 12/18/2024 Nurse Triage Internal Medicine - [facility] [address] [place] [phone] Navya Gomez RN 12/18/2024 Telephone Internal Medicine - [facility] [address] [place] [address] Tasia Kruger, 12/07/2024 Telephone Internal Medicine - [facility] [address] [place] [place], [place] [address] Tasia Kruger, 11/16/2024 Telephone Internal Medicine - [facility] [address] [place] [address] Tasia Kruger, 11/08/2024 Results Follow-Up Internal Medicine - [facility] [address] [place], [place] [phone] Lucas Gonzalez MD 11/07/2024 9:30 AM EDT Office Visit [facility] [address] [facility] [place], [place] [phone] Lucas Gonzalez MD Encounter for annual physical exam (Primary Dx); Anxiety; Migraine without aura and without status migrainosus, not intractable; Encounter for lipid screening for cardiovascular disease 11/02/2024 9:30 AM EDT Consult Neurosurgery [place] [address] [place] [address] Rajni Molina MD Cervical radiculopathy [...] for your loved ones. For example, child nutrition manager or elderly care for an older adult? [...] Procedure Name Priority Date/Time Associated Diagnosis Comments EXTERNAL XRAY REPORT 01/22/2025 LIPID PANEL WITH REFLEX TO DIRECT LDL Routine 11/07/2024 9:49 AM EDT Encounter for lipid screening for cardiovascular disease COMPREHENSIVE METABOLIC PANEL Routine 11/07/2024 9:49 AM EDT Encounter for lipid screening for cardiovascular disease HM PAP SMEAR Routine 05/20/2021 from Last 3 Months or Most Recently Relevant to Health Maintenance Results * External Xray Report (01/22/2025) Anatomical Region Laterality Modality Radiographic Mariana ging Provider [facility] IMG XR PROCEDURES Final Result * Lipid panel with reflex to direct LDL (11/07/2024 9:49 AM EDT) Cholesterol 148 0 - 200 mg/dL LAB CHEMISTRY METHOD 11/07/2024 4:36 PM EDT [facility] Triglycerides 43 0 - 150 mg/dL LAB CHEMISTRY METHOD 11/07/2024 4:36 PM EDT [facility] HDL 67 >=40 mg/dL LAB CHEMISTRY METHOD 11/07/2024 4:36 PM EDT [facility] LDL Calculated 72 0 - 100 mg/dL LAB CHEMISTRY METHOD 11/07/2024 4:36 PM EDT [facility] Comment:Estimated LDL Calcul ated using equation: Total cholesterol - HDL cholesterol - (Triglycerides/5) VLDL Cholesterol Tramaine 8.6 mg/dL LAB CHEMISTRY METHOD 11/07/2024 4:36 PM EDT [facility] Non HDL Chol. (LDL+VLDL) 81 <145 mg/dL LAB CHEMISTRY METHOD 11/07/2024 4:36 PM EDT [facility] Chol/HDL Ratio 2.2 0.0 - 4.4 LAB CHEMISTRY METHOD 11/07/2024 4:36 PM T [facility] Blood Venous blood specimen / Unknown Venipuncture / Unknown 11/07/2024 9:49 AM EDT 11/07/2024 9:49 AM EDT Lucas Gonzalez MD LAB BLOOD ORDERABLES Final Resu lt [facility] [address] [place] [address], [place] [phone] * (ABNORMAL) Comprehensive metabolic panel (11/07/2024 9:49 AM EDT) Sodium 140 133 - 145 mmol/L LAB CHEMISTRY METHOD 11/07/2024 4:36 PM [facility] Potassium 4.5 3.5 - 5.5 mmol/L LAB CHEMISTRY METHOD 11/07/2024 4:36 PM T [facility] Chloride 109 96 - 110 mmol/L LAB CHEMISTRY METHOD 11/07/2024 4:36 PM [facility] CO2 28 21 - 32 mmol/L LAB CHEMISTRY METHOD 11/07/2024 4:36 PM [facility] Anion Gap 3 3 - 11 LAB CHEMISTRY METHOD 11/07/2024 4:36 PM [facility] Glucose 74 70 - 100 mg/dL LAB CHEMISTRY METHOD 11/07/2024 4:36 PM [facility] BUN 10 5 - 25 mg/dL LAB CHEMISTRY METHOD 11/07/2024 4:36 PM [facility] Creatinine 0.61 0.50 - 1.10 mg/dL LAB CHEMISTRY METHOD 11/07/2024 4:36 PM [facility] eGFR 113 >=60 mL/min/1. 73m2 LAB CHEMISTRY METHOD 11/07/2024 4:36 PM [facility] Comment:Calculation based on the Chronic Kidney Disease Epidemiology Collaboration (CKD-EPI) equation refit without adjustment for race. BUN/Creatinine Ratio 16.4 LAB CHEMISTRY METHOD 11/07/2024 4:36 PM [facility] Calcium 8.7 8.5 - 10.5 mg/dL LAB CHEMISTRY METHOD 11/07/2024 4:36 PM [facility] AST (SGOT) 17 10 - 42 unit/L LAB CHEMISTRY METHOD 11/07/2024 4:36 PM [facility] ALT (SGPT) 23 10 - 60 unit/L LAB CHEMISTRY METHOD 11/07/2024 4:36 PM [facility] Alkaline Phosphatase 28(L) 42 - 121 unit/L LAB CHEMISTRY METHOD 11/07/2024 4:36 PM [facility] Total Protein 6.2 6.0 - 8.0 g/dL LAB CHEMISTRY METHOD 11/07/2024 4:36 PM [facility] Albumin 3.5 3.2 - 5.0 g/dL LAB CHEMISTRY METHOD 11/07/2024 4:36 PM [facility] Total Bilirubin 0.3 0.0 - 1.4 mg/dL LAB CHEMISTRY METHOD 11/07/2024 4:36 PM [facility] Blood Venous blood specimen / Unknown Venipuncture / Unknown 11/07/2024 9:49 AM EDT 11/07/2024 9:49 AM EDT Lucas Gonzalez MD LAB BLOOD ORDERABLES Final Resu lt [place] ([facility]) [facility] [address] [place] [address], [place] [phone] * Hm Pap Smear (05/20/2021) HM Pap smear no interpreta tion,abstr acted Historical Provider HEALTH MAINTENANCE Final Result from Last 3 Months or Most Recently Relevant to Health Maintenance Insurance [employer] Care Teams Professor Of Special Education Relationship Specialty Start Date End Date Mary Bradley MD [address] [place], [place] PCP - General Internal Medicine 12/18/24
== END 2025-01-22 12:36 | disposition home or self-care (01) ==
LOC: HO.XRAY 12:35
PROVIDERS: PCP Internal Medicine; Visit Provider Nurse Practitioner Family
DX: M47.812 Spondylosis without myelopathy or radiculopathy, cervical region (principal); M50.30 Other cervical disc degeneration, unspecified cervical region; M43.12 Spondylolisthesis, cervical region; M48.02 Spinal stenosis, cervical region
CPT/HCPCS: 72052

== ENCOUNTER → 2025-01-22 12:37 | Outpatient (BNV) | payer OTHER, SELFPAY | PROVIDERS: PCP Internal Medicine; Visit Provider Radiology Diagnostic Radiology | DX: M47.817 Spondylosis without myelopathy or radiculopathy, lumbosacral region (principal); M50.321 Other cervical disc degeneration at C4-C5 level; M50.322 Other cervical disc degeneration at C5-C6 level | CPT/HCPCS: 72052 ==